=== PATIENT | male | born 1995 | race Caucasian/White ===

== ENCOUNTER 2023-05-11 11:13 | Emergency (ER) | payer BC ==
[2023-05-11 11:45] VITALS: BP 152/91; PULSE 80
== END 2023-05-11 13:47 | disposition home or self-care (01) ==
LOC: MW.ED 11:13
DX: M51.26 Other intervertebral disc displacement, lumbar region (principal); I10 Essential (primary) hypertension; F17.210 Nicotine dependence, cigarettes, uncomplicated
CPT/HCPCS: 72131; 72131-26; 99283